=== PATIENT | female | born 1970 | race Two or more races ===

== ENCOUNTER 2022-09-15 21:32 | Emergency (ER) | payer OTHER ==
[~2022-09-15] VITALS: Ht 165.1 cm; Wt 72.6 kg
[2022-09-15] MEDS ORDERED: KETOROLAC TROMETHAMINE 15 MG INJ IVP ONE (22:00)
[2022-09-15] MEDS ORDERED: PROCHLORPERAZINE EDISYLATE 10 MG/2 ML VIAL IV ONE (22:00)
[2022-09-15] MEDS ORDERED: HYDROMORPHONE 1 MG/1 ML DISP.SYRIN IV ONE (22:00)
[2022-09-15] MEDS ORDERED: IV NORMAL SALINE 1000 ML BAG IV ONE (22:00)
[2022-09-15] MEDS ORDERED: PROCHLORPERAZINE EDISYLATE 10 MG/2 ML VIAL ONE (22:04)
[2022-09-15] MEDS ORDERED: KETOROLAC TROMETHAMINE 15 MG INJ ONE (22:04)
[2022-09-15] MEDS ORDERED: HYDROMORPHONE 1 MG/1 ML DISP.SYRIN ONE (22:04)
--- NOTE | 2022-09-15 22:05 | NUR ---
Dr. Quiñonez is in the room examining patient.
--- NOTE | 2022-09-15 22:15 | NUR ---
Patient's SO at bedside
--- NOTE | 2022-09-15 22:17 | NUR ---
[facility]
[2022-09-15 22:40] LABS: HEMATOCRIT 27.1 % (31.2-41.9); MEAN CORPUSCULAR VOLUME 60.4 fL (75.5-95.3); PLATELET COUNT (AUTO) 451 K/uL (179-408)
[2022-09-15 22:51] LABS: *BILIRUBIN,URIN NEGATIVE (NEGATIVE); *CLARITY,URINE CLEAR (CLEAR); *COLOR,URINE YELLOW (YELLOW); *KETONES,URINE NEGATIVE (NEGATIVE); *UROBILINOGEN,URINE 0.2 E.U./dl (NORMAL); LEUKOCYTE ESTERASE ,URINE NEGATIVE (NEGATIVE); NITRITE, URINE NEGATIVE (NEGATIVE); PH,URINE 7.5 (5.0-8.0); UGLUCOSE NEGATIVE (NEGATIVE)
[2022-09-15 22:54] LABS: *BLOOD, URINE TRACE (NEGATIVE); RBC,URINE 0-3 /HPF (0-3)
[2022-09-15 22:55] LABS: ALANINE AMINOTRANSFERASE 41 U/L (14-59); ALKALINE PHOSPHATASE 122 U/L (50-136); ASPARTATE AMINOTRANSFERASE 36 U/L (15-37); BILIRUBIN,DIRECT 0.1 mg/dL (0.0-0.2); BILIRUBIN,TOTAL 0.3 mg/dL (0.2-1.0); CARBON DIOXIDE 27 mmol/L (21-32); CHLORIDE 104 mmol/L (98-107); CREATININE 0.8 mg/dL (0.6-1.3); GLUCOSE 110 mg/dL (74-106); LIPASE 261 U/L (73-393); POTASSIUM 4.1 mmol/L (3.5-5.1); TOTAL PROTEIN, SERUM 8.3 g/dL (6.4-8.2); UREA NITROGEN, BLOOD 15 mg/dL (7-18)
[2022-09-15 22:55] LABS: BACTERIA,URINE FEW /HPF (NONE SEEN); SQUAMOUS EPITHELIAL CELL,UR FEW /HPF (NONE SEEN); WBC,URINE 0-3 /HPF (0-3)
[2022-09-16] MEDS ORDERED: IV NS 1000 ML 1,000 ML IV ONE
[2022-09-16] MEDS ORDERED: PROC10TA29 PO (00:03)
[2022-09-16] MEDS ORDERED: HYDR-3980 PO (00:03)
[2022-09-16 00:16] LABS: IRON, SERUM 12 ug/dL (50-175)
[2022-09-16] MEDS ORDERED: FERR220S6 PO (01:20)
--- NOTE | 2022-09-16 03:15 | NUR ---
Patient discharged to home in stable condition. Written and verbal after care instructions given. Patient verbalizes understanding of instructions. Stressed follow up or return to ER for worsening s/s. Patient is a/ox4, NAD noted. Patient is able to walk with steady gait, accompanied by her
[2022-09-16 03:16] VITALS: BP 125/71
== END 2022-09-16 03:16 | disposition home or self-care (01) ==
LOC: ER 21:44
DX: D50.8 Other iron deficiency anemias (principal); N20.1 Calculus of ureter; D50.9 Iron deficiency anemia, unspecified; D72.829 Elevated white blood cell count, unspecified
CPT/HCPCS: 99285; 74176; 96374; 71045; 96375; 96361 ×2; 80076; 80048; 81001; 83550; 83690; 85025; 85044; 87040; 84484; 84702; 36415; 93005; 83605; J1885; J0780; J1170; J7040 ×2; 70030-TC; A4663